=== PATIENT | female | born 1990 | race Caucasian/White ===

== ENCOUNTER 2020-08-14 14:45 | Outpatient (CLI) | payer MEDICAID ==
[2020-08-14 15:09] LABS: MICROSCOPIC INDICATED
[2020-08-14] MEDS ORDERED: PREN1TAB10 PO (15:55)
[2020-08-14] MEDS ORDERED: NITR100C56 PO (15:56)
[2020-08-14] MEDS ORDERED: NITROFURANTOIN (MACROBID) 100 MG CAPSULE ONE (15:57)
[2020-08-14] MEDS ORDERED: NITROFURANTOIN (MACROBID) 100 MG CAPSULE PO ONE (16:00)
[2020-08-14] MEDS ORDERED: PLEASE ENTER HEIGHT AND WEIGHT MC SCH (16:30)
[2020-08-14] MEDS ORDERED: PLEASE ENTER ALLERGIES MC SCH (16:30)
== END 2020-08-14 16:10 | disposition home or self-care (01) ==
LOC: LDOP 14:45
PROVIDERS: ATTEND Obstetrics & Gynecology
DX: O26.899 Other specified pregnancy related conditions, unspecified trimester (principal); R10.9 Unspecified abdominal pain
CPT/HCPCS: 59025; 81001; 87077; 87086

== ENCOUNTER 2020-08-18 16:59 | Observation (INO) | payer MEDICAID ==
[~2020-08-18] VITALS: Ht 157.5 cm; Wt 67.2 kg
[~2020-08-18 16:59] MED LIST: NITR100C56 PO; PREN1TAB10 PO
[2020-08-18 17:02] VITALS: BP 106/63
[2020-08-18 17:47] LABS: MICROSCOPIC INDICATED
[2020-08-18] MEDS: LACTATED RINGERS 1,000 ML IV SCH ×2 (17:52→21:57)
[2020-08-18 18:01] LABS: BASOPHILS % (AUTO) 0 % (0-1); EOSINOPHILS % (AUTO) 0 % (1-7); LYMPHOCYTES % (AUTO) 8 % (22-44); MEAN CORPUSCULAR HEMOGLOBIN 27.6 pg (27.0-34.8); MEAN CORPUSCULAR HGB CONC 32.8 g/dL (32.4-35.8); MEAN PLATELET VOLUME 9.4 fL (7.4-10.4); MONOCYTES % (AUTO) 9 % (2-9); NEUTROPHILS % (AUTO) 83 % (42-75); PLATELET COUNT 194 x10^3/uL (130-400); RED BLOOD COUNT 4.22 x10^6/uL (3.82-5.3); RED CELL DISTRIBUTION WIDTH 13.5 % (9.6-15.2)
[2020-08-18] MEDS: CEFAZOLIN PMX 1GM/50ML 50 ML IV SCH (18:13)
[2020-08-18 18:19] LABS: MD SCAN
[2020-08-19] MEDS: CEFAZOLIN PMX 1GM/50ML 50 ML IV SCH ×2 (01:35→10:04)
[2020-08-19] MEDS: LACTATED RINGERS 1,000 ML IV SCH (10:06)
[2020-08-19] MEDS ORDERED: CEPH750C9 PO (11:08)
== END 2020-08-19 11:31 | disposition home or self-care (01) ==
LOC: LDOP 16:59 → LDIP 17:35
PROVIDERS: ADMIT Obstetrics & Gynecology; ATTEND Obstetrics & Gynecology
DX: O23.42 Unspecified infection of urinary tract in pregnancy, second trimester (principal); Z20.822 Contact with and (suspected) exposure to COVID-19; B96.1 Klebsiella pneumoniae [K. pneumoniae] as the cause of diseases classified elsewhere; Z3A.27 27 weeks gestation of pregnancy; Z79.899 Other long term (current) drug therapy
CPT/HCPCS: 36415; 81001; 82962; 85025; 87635; 96361; 96365; 96366; 99211; G0378; J0690; J7120; 96360; G0463

== ENCOUNTER 2020-10-05 22:34 | Outpatient (CLI) | payer MEDICAID ==
[~2020-10-05] VITALS: Ht 157.5 cm; Wt 67.0 kg
[~2020-10-05 22:34] MED LIST changes: +CEPH750C9 PO
[2020-10-05 22:49] VITALS: BP 117/77
[2020-10-05 23:04] LABS: MICROSCOPIC INDICATED
== END 2020-10-05 23:47 | disposition home or self-care (01) ==
LOC: LDOP 22:34
PROVIDERS: ATTEND Obstetrics & Gynecology
DX: Z34.93 Encounter for supervision of normal pregnancy, unspecified, third trimester (principal); Z3A.33 33 weeks gestation of pregnancy
CPT/HCPCS: 59025; 81001; 87077; 87086; 87186

== ENCOUNTER 2020-10-06 12:31 | Outpatient (CLI) | payer MEDICAID ==
[2020-10-06] MEDS ORDERED: PROMETHAZINE 25 MG/ML, 1ML ONE (14:36)
[2020-10-06] MEDS ORDERED: MEPERIDINE/PF 50 MG/ML ONE (14:36)
== END 2020-10-06 14:37 | disposition home or self-care (01) ==
LOC: LDOP 12:31
PROVIDERS: ATTEND Obstetrics & Gynecology
DX: O42.913 Preterm premature rupture of membranes, unspecified as to length of time between rupture and onset of labor, third trimester (principal); Z3A.34 34 weeks gestation of pregnancy
CPT/HCPCS: 59025; 76815; 84112

== ENCOUNTER 2020-10-21 23:00 | Inpatient (IN) | payer MEDICAID ==
[~2020-10-21] VITALS: Ht 157.5 cm; Wt 68.6 kg
[2020-10-21] MEDS ORDERED: LACTATED RINGERS 1,000 ML IV SCH (23:30)
[2020-10-21] MEDS ORDERED: TERBUTALINE 1 MG/ML, 1ML IVPush PRN (23:30)
[2020-10-21] MEDS ORDERED: PENICILLIN GK 5,000,000 UNITS in DEXTROSE 5% 100 ML IVPB ONE (23:30)
[2020-10-21] MEDS ORDERED: CALCIUM CARBONATE 500 MG TAB.CHEW PO PRN (23:30)
[2020-10-21] MEDS ORDERED: D5%-LACTATED RINGERS 1,000 ML IV SCH (23:30)
[2020-10-21] MEDS ORDERED: FENTANYL PF 100 MCG/2ML IVPush PRN (23:30)
[2020-10-21] MEDS ORDERED: FENTANYL PF 100 MCG/2ML IV PRN (23:30)
[2020-10-21] MEDS ORDERED: TERBUTALINE 1 MG/ML, 1ML SQ PRN (23:30)
[2020-10-21] MEDS ORDERED: ONDANSETRON 2MG/ML, 2ML IVPush PRN (23:30)
[2020-10-21] MEDS ORDERED: NEWBORN KIT ONE (23:33)
[2020-10-21] MEDS ORDERED: OXYTOCIN 30U/ 0.9% NaCL 500ML 500 ML ONE (23:33)
[2020-10-21] MEDS ORDERED: LIDOCAINE 1%, 20ML ONE (23:45)
[2020-10-21] MEDS ORDERED: MISOPROSTOL 200 MCG TABLET ONE (23:45)
[2020-10-21 23:48] LABS: MEAN CORPUSCULAR HEMOGLOBIN 25.4 pg (27.0-34.8); MEAN CORPUSCULAR HGB CONC 32.6 g/dL (32.4-35.8); MEAN PLATELET VOLUME 8.4 fL (7.4-10.4); PLATELET COUNT 312 x10^3/uL (130-400); RED BLOOD COUNT 4.26 x10^6/uL (3.82-5.3); RED CELL DISTRIBUTION WIDTH 15.2 % (9.6-15.2)
[2020-10-21 23:58] VITALS: BP 117/71
[2020-10-22 00:28] LABS: <RBC MORPHOLOGY> NORMAL; BAND#(MANUAL) 0.28 x10^3/uL; BANDS%(MANUAL) 1 % (0-7); LYMPH#(MANUAL) 1.99 x10^3/uL (1-3.4); LYMPHS% (MANUAL) 7 % (22-44); MONOS#(MANUAL) 0.85 x10^3/uL (0.3-2.7); MONOS% (MANUAL) 3 % (2-9); SEG#(MANUAL) 25.28 x10^3/uL (1.8-6.8); SEGS% (MANUAL) 89 % (42-75)
[2020-10-22 00:29] LABS: <PLATELET ESTIMATE> ADEQUATE; <PLT MORPHOLOGY> NORMAL PLT MORPH; PMNS WITH VACUOLES 1+; TOXIC GRAN 1+
[2020-10-22] MEDS: PENICILLIN GK 2,500,000 UNITS in DEXTROSE 5% 100 ML IVPB SCH ×6 (04:00→20:00)
[2020-10-22] MEDS ORDERED: OXYTOCIN 30U/ 0.9% NaCL 500ML 500 ML IV PRN (05:30)
[2020-10-22] MEDS ORDERED: LACTATED RINGERS 1,000 ML IVBOLUS PRN ×2 (06:30→09:00)
[2020-10-22] MEDS ORDERED: EPHEDRINE 50 MG/ML, 1ML IVPush PRN ×2 (06:30→09:00)
[2020-10-22] MEDS ORDERED: FENTANYL/BUPIV./NS/PF 250 ML EPIDCONT SCH ×2 (06:30→09:00)
[2020-10-22] MEDS: LACTATED RINGERS 1,000 ML IV SCH ×2 (06:55→07:58)
[2020-10-22] MEDS ORDERED: BUPIVACAINE 0.25% ONE (07:28)
[2020-10-22] MEDS ORDERED: DIPHENHYDRAMINE 50 MG/ML, 1ML IVPush PRN (09:00)
[2020-10-22] MEDS ORDERED: LACTATED RINGERS 1,000 ML IV SCH (09:00)
[2020-10-22] MEDS ORDERED: ONDANSETRON 2MG/ML, 2ML IVPush PRN (09:00)
[2020-10-22] MEDS ORDERED: NALOXONE 0.4 MG/ML, 1ML IVPush PRN (09:00)
[2020-10-22] MEDS ORDERED: SIMETHICONE 80 MG CHEW TAB PO PRN (12:30)
[2020-10-22] MEDS ORDERED: RHOGAM FROM BLOOD BANK 1 NOTE EA IM/IV ONE (12:30)
[2020-10-22] MEDS ORDERED: OXYcodone/APAP 5/325MG TABLET PO PRN ×2 (12:30)
[2020-10-22] MEDS: OXYTOCIN 30U/ 0.9% NaCL 500ML 500 ML IV SCH ×2 (12:30→22:30)
[2020-10-22] MEDS ORDERED: ONDANSETRON 2MG/ML, 2ML IV PRN (12:30)
[2020-10-22] MEDS ORDERED: ACETAMINOPHEN 325 MG TABLET PO PRN (12:30)
[2020-10-22] MEDS ORDERED: MISOPROSTOL 200 MCG TABLET PR PRN (12:30)
[2020-10-22] MEDS ORDERED: DEXTROSE 47%, 15GM GEL ONE (13:27)
[2020-10-22 14:15] VITALS: BP 112/71
[2020-10-22 17:00] VITALS: BP 112/73
[2020-10-22 19:44] LABS: BASOPHILS % (AUTO) 0 % (0-1); EOSINOPHILS % (AUTO) 0 % (1-7); LYMPHOCYTES % (AUTO) 7 % (22-44); MEAN CORPUSCULAR HEMOGLOBIN 25.7 pg (27.0-34.8); MEAN CORPUSCULAR HGB CONC 32.2 g/dL (32.4-35.8); MEAN PLATELET VOLUME 8.9 fL (7.4-10.4); MONOCYTES % (AUTO) 4 % (2-9); NEUTROPHILS % (AUTO) 89 % (42-75); PLATELET COUNT 305 x10^3/uL (130-400); RED BLOOD COUNT 4.26 x10^6/uL (3.82-5.3); RED CELL DISTRIBUTION WIDTH 15.6 % (9.6-15.2)
[2020-10-22] MEDS: DOCUSATE 100 MG CAPSULE PO PRN (19:44)
[2020-10-22 20:00] VITALS: BP 111/75
[2020-10-22] MEDS: ACETAMINOPHEN 325 MG TABLET PO PRN (20:36)
[2020-10-23] VITALS: BP 90/58
[2020-10-23] MEDS: ACETAMINOPHEN 325 MG TABLET PO PRN ×3 (00:50→20:26)
[2020-10-23] MEDS: PENICILLIN GK 2,500,000 UNITS in DEXTROSE 5% 100 ML IVPB SCH ×3 (02:35→02:36)
[2020-10-23] MEDS: OXYTOCIN 30U/ 0.9% NaCL 500ML 500 ML IV SCH (02:35)
[2020-10-23 06:19] VITALS: BP 95/62
[2020-10-23] MEDS: DOCUSATE 100 MG CAPSULE PO PRN (09:46)
[2020-10-23] MEDS: PRENATAL VIT/IRON/FA 1 EACH TABLET PO SCH (09:46)
[2020-10-23 20:00] VITALS: BP 104/66
[2020-10-23] MEDS ORDERED: ACETAMINOPHEN 500 MG TABLET ONE (20:18)
[2020-10-24 07:30] VITALS: BP 101/67
[2020-10-24] MEDS: PRENATAL VIT/IRON/FA 1 EACH TABLET PO SCH (09:00)
== END 2020-10-24 13:00 | disposition home or self-care (01) | DRG 560 ==
LOC: LDOP 23:00 → LDIP 23:42 → 2NW 10-22 14:04
PROVIDERS: ADMIT Obstetrics & Gynecology; ATTEND Obstetrics & Gynecology
PROC: 10E0XZZ Delivery of Products of Conception, External Approach (ICD-10-PCS; principal; 2020-10-22)
PROC: 10907ZC Drainage of Amniotic Fluid, Therapeutic from Products of Conception, Via Natural or Artificial Opening (ICD-10-PCS; 2020-10-22)
PROC: 3E0R3BZ Introduction of Anesthetic Agent into Spinal Canal, Percutaneous Approach (ICD-10-PCS; 2020-10-22)
PROC: 00HU33Z Insertion of Infusion Device into Spinal Canal, Percutaneous Approach (ICD-10-PCS; 2020-10-22)
DX: O99.824 Streptococcus B carrier state complicating childbirth (principal); O34.211 Maternal care for low transverse scar from previous cesarean delivery; Z20.822 Contact with and (suspected) exposure to COVID-19; Z37.0 Single live birth; Z86.32 Personal history of gestational diabetes; Z3A.36 36 weeks gestation of pregnancy
CPT/HCPCS: 36415; 85025; 86592; 86850; 86900; 87635; G0378; J2540; J2590; J3010; J7120